=== PATIENT | female | born 1965 | race Caucasian/White ===

== ENCOUNTER 2016-11-04 12:57 | Day surgery (SDC) | payer BC ==
[~2016-11-04 12:57] MED LIST: ALLERGY RELIEF10 M7 PO; CALTRATE 600 +1 EAC2 PO; CENTRUM SILVER1 EAC3 PO; METHERGINE0.2 M1 PO; MIRALAX17 G2 PO; TYLENOL PM EX-1 EAC4 PO; VITAMIN D32000 UNI3 PO
[2016-11-04 14:17] LABS: ALB/GLOB RATIO 1.1 (0.8-2.0); ALBUMIN 3.7 g/dl (3.5-5.0); ALKALINE PHOSPHATASE 49 U/L (33-138); ALT/SGPT 20 U/L (12-78); ANION GAP 9 mmol/L (0-20); AST/SGOT 19 U/L (10-40); BILIRUBIN,TOTAL 0.7 mg/dl (0-1.5); BLOOD UREA NITROGEN 12 mg/dl (6-24); CALCIUM 8.8 mg/dl (8.5-10.5); CARBON DIOXIDE-VENOUS 29 mmol/L (22-32); CHLORIDE 109 mmol/l (96-110); POTASSIUM 3.9 mmol/L (3.7-5.1); SODIUM 143 mmol/L (135-145); eGFR VALUE FOR BLACK >90 mL/Min
[2016-11-04 14:24] LABS: GLUCOSE 69 mg/dL (70-110)
[2016-11-04 14:29] LABS: PREGNANCY-SERUM NEGATIVE (NEGATIVE)
[2016-11-04] MEDS ORDERED: PERCOCET 5-3251 EACH PO (21:12)
[2016-11-05] MEDS ORDERED: ULTRAM50 M1 PO (08:28)
== END 2016-11-05 11:20 ==
LOC: SHSB 12:57 → ORW 15:11 → PACU 17:07 → OBGE 18:05
PROVIDERS: Obstetrics & Gynecology
PROC: 0UT94ZZ Resection of Uterus, Percutaneous Endoscopic Approach (ICD-10-PCS; principal; 2016-11-04)
PROC: 0UTC4ZZ Resection of Cervix, Percutaneous Endoscopic Approach (ICD-10-PCS; 2016-11-04)
PROC: 0UT24ZZ Resection of Bilateral Ovaries, Percutaneous Endoscopic Approach (ICD-10-PCS; 2016-11-04)
PROC: 0UT74ZZ Resection of Bilateral Fallopian Tubes, Percutaneous Endoscopic Approach (ICD-10-PCS; 2016-11-04)
PROC: 8E0W4CZ Robotic Assisted Procedure of Trunk Region, Percutaneous Endoscopic Approach (ICD-10-PCS; 2016-11-04)
DX: N80.0 Endometriosis of uterus (principal); D25.1 Intramural leiomyoma of uterus; K21.9 Gastro-esophageal reflux disease without esophagitis; Z79.899 Other long term (current) drug therapy; Z91.048 Other nonmedicinal substance allergy status; Z98.890 Other specified postprocedural states
CPT/HCPCS: J0690; J1170; J2175; J3010; J7030; J7121